=== PATIENT | female | born 1980 | race Caucasian/White ===

== ENCOUNTER → 2022-12-17 16:21 | Outpatient (BNVA) | payer MEDICARE, SELFPAY | PROVIDERS: PCP Nurse Practitioner Family; Visit Provider Nurse Practitioner Family | DX: Z79.631 Long term (current) use of antimetabolite agent (principal); M32.9 Systemic lupus erythematosus, unspecified; G89.29 Other chronic pain | CPT/HCPCS: 80053; 85025 ==

== ENCOUNTER 2023-12-01 06:30 | Outpatient (RCR) | payer MEDICARE, SELFPAY | END 2023-12-30 23:59 | disposition home or self-care (01) | LOC: GPT 06:30 | PROVIDERS: PCP Nurse Practitioner Family; Visit Provider Anesthesiology | DX: M54.17 Radiculopathy, lumbosacral region (principal) | CPT/HCPCS: 97162 ==

== ENCOUNTER → 2024-07-09 11:00 | Outpatient (BNVA) | payer MEDICARE, SELFPAY | PROVIDERS: PCP Nurse Practitioner Family; Visit Provider Nurse Practitioner Family | DX: M32.9 Systemic lupus erythematosus, unspecified (principal); R53.83 Other fatigue; R63.5 Abnormal weight gain; Z68.31 Body mass index [BMI] 31.0-31.9, adult | CPT/HCPCS: 80053; 82306; 82607; 83735; 84443; 85025 ==

== ENCOUNTER → 2024-08-10 14:30 | Outpatient (BNVA) | payer MEDICARE, SELFPAY | PROVIDERS: PCP Nurse Practitioner Family; Visit Provider Nurse Practitioner Family | DX: M32.9 Systemic lupus erythematosus, unspecified (principal) | CPT/HCPCS: 85025; 85651; 86140; 86160; 86162; 86200; 86235; 86255; 86376; 86431 ==